=== PATIENT | female | born 1990 | race Caucasian/White ===

== ENCOUNTER → 2020-11-15 13:59 | Outpatient (CLI) | payer BC, SELFPAY ==
[2015-10-03 14:06] VITALS: BMI 33.7
[2020-11-23 08:02] LABS: HPV APTIMA, High Risk Negative (Negative)
[2020-11-23 08:08] LABS: HPV Reflexed? YES, CHARGE PATIENT
== END ==
PROVIDERS: PCP Family Medicine; Visit Provider Obstetrics & Gynecology
DX: Z12.4 Encounter for screening for malignant neoplasm of cervix (principal)
CPT/HCPCS: 87624; 88175; G0145

== ENCOUNTER → 2022-01-31 | Outpatient (CLI) | payer BC, SELFPAY ==
[2022-01-31 15:11] LABS: hCG Titer Quant., Serum 14132 mIU/mL (1-3)
== END | disposition home or self-care (01) ==
LOC: LAB 13:39
PROVIDERS: Referring Provider Obstetrics & Gynecology; Visit Provider Obstetrics & Gynecology
DX: Z34.90 Encounter for supervision of normal pregnancy, unspecified, unspecified trimester (principal)
CPT/HCPCS: 36415; 84702

== ENCOUNTER → 2022-02-25 | Outpatient (CLI) | payer BC, SELFPAY ==
[2022-02-25 15:00] LABS: Absolute Lymphocyte Count 2.88 X10^3/uL (0.83-4.51); Absolute Neutrophil Count 7.2 X10^3/uL (2.0-7.7); Basophil# 0.02 X10^3/uL; Basophil% 0.2 % (0-1); Eosinophil# 0.12 X10^3/uL; Eosinophils% 1.1 % (0-5); Hematocrit 40.9 % (37-47); Hemoglobin 13.8 g/dL (12.0-15.0); Lymphocyte # 2.88 X10^3/ul (0.83-4.51); Lymphocyte % 26.7 % (19-41); Mean Corp Hgb Conc 33.7 g/dL (32-36); Mean Corpuscular Hgb 29.2 pg (27.0-32.0); Mean Corpuscular Volume 86.5 fL (81-99); Mean Platelet Vol. 9.7 fl (6.2-12.0); Monocyte# 0.59 X10^3/uL; Monocyte% 5.5 % (0-10); NRBC Flagged by Analyzer 0 % (0-5); Neutrophil # 7.15 X10^3/uL (2.7-7.7); Neutrophil % 66.2 % (47-70); Platelet Count 366 K/mm3 (150-450); RBC Distribution Width CV 13.5 % (11.6-14.6); RBC Distribution Width SD 42.8 fl (35.1-43.9); Red Blood Count 4.73 M/mm3 (4.2-5.4); White Blood Count 10.8 K/mm3 (4.4-11.0)
[2022-02-25 15:47] LABS: HIV - WCH Non-Reactive (Nonreactive); Hepatitis B Surface Antigen Non-Reactive (Nonreactive); Hepatitis C Antibody Non-Reactive (Nonreactive); Rubella IgG Reactive (Nonreactive); Syphilis Antibodies Non-reactive
[2022-02-27 08:29] LABS: V-Zoster IgG (Immunity) 757 index (Immune >165)
[2022-02-27 22:06] LABS: Chlamydia By Nucleic Acid AMP Negative (Negative)
[2022-02-28 20:28] LABS: Gonococcus By Nucleic Acid AMP Negative (Negative)
== END | disposition home or self-care (01) ==
LOC: WOBLAB 14:04
PROVIDERS: Visit Provider Obstetrics & Gynecology
DX: Z34.81 Encounter for supervision of other normal pregnancy, first trimester (principal)
CPT/HCPCS: 36415; 85025; 86703; 86762; 86780; 86787; 86803; 87086; 87088; 87340; 87491; 87591

== ENCOUNTER → 2022-06-17 | Outpatient (CLI) | payer BC, SELFPAY ==
[2022-06-17 15:24] LABS: Absolute Lymphocyte Count 2.87 X10^3/uL (0.83-4.51); Absolute Neutrophil Count 9.5 X10^3/uL (2.0-7.7); Basophil# 0.03 X10^3/uL; Basophil% 0.2 % (0-1); Eosinophil# 0.15 X10^3/uL; Eosinophils% 1.1 % (0-5); Hematocrit 38.2 % (37-47); Hemoglobin 12.9 g/dL (12.0-15.0); Lymphocyte # 2.87 X10^3/ul (0.83-4.51); Lymphocyte % 21.3 % (19-41); Mean Corp Hgb Conc 33.8 g/dL (32-36); Mean Corpuscular Hgb 29.7 pg (27.0-32.0); Mean Corpuscular Volume 87.8 fL (81-99); Mean Platelet Vol. 9.4 fl (6.2-12.0); Monocyte# 0.79 X10^3/uL; Monocyte% 5.9 % (0-10); NRBC Flagged by Analyzer 0 % (0-5); Neutrophil # 9.54 X10^3/uL (2.7-7.7); Neutrophil % 70.8 % (47-70); Platelet Count 326 K/mm3 (150-450); RBC Distribution Width CV 13.1 % (11.6-14.6); RBC Distribution Width SD 42.4 fl (35.1-43.9); Red Blood Count 4.35 M/mm3 (4.2-5.4); White Blood Count 13.5 K/mm3 (4.4-11.0)
[2022-06-17 15:55] LABS: Glucose Challenge Gest 1H 50g 101 mg/dL (70-140)
== END | disposition home or self-care (01) ==
LOC: WOBLAB 15:05
PROVIDERS: Visit Provider Obstetrics & Gynecology
DX: Z34.82 Encounter for supervision of other normal pregnancy, second trimester (principal)
CPT/HCPCS: 36415; 82950; 85025

== ENCOUNTER → 2022-08-28 | Outpatient (CLI) | payer BC, SELFPAY ==
[2022-08-28 17:06] LABS: Absolute Lymphocyte Count 2.34 X10^3/uL (0.83-4.51); Absolute Neutrophil Count 8.5 X10^3/uL (2.0-7.7); Basophil# 0.03 X10^3/uL; Basophil% 0.3 % (0-1); Eosinophil# 0.08 X10^3/uL; Eosinophils% 0.7 % (0-5); Hematocrit 40.8 % (37-47); Hemoglobin 13.5 g/dL (12.0-15.0); Lymphocyte # 2.34 X10^3/ul (0.83-4.51); Lymphocyte % 19.6 % (19-41); Mean Corp Hgb Conc 33.1 g/dL (32-36); Mean Corpuscular Hgb 29.5 pg (27.0-32.0); Mean Corpuscular Volume 89.1 fL (81-99); Monocyte# 0.89 X10^3/uL; Monocyte% 7.5 % (0-10); NRBC Flagged by Analyzer 0 % (0-5); Neutrophil % 71.1 % (47-70); Platelet Count 325 K/mm3 (150-450); RBC Distribution Width CV 13.5 % (11.6-14.6); RBC Distribution Width SD 43.2 fl (35.1-43.9); Red Blood Count 4.58 M/mm3 (4.2-5.4); White Blood Count 11.9 K/mm3 (4.4-11.0)
[2022-08-28 19:06] LABS: Syphilis Antibodies Non-reactive
== END | disposition home or self-care (01) ==
LOC: WOBLAB 15:53
PROVIDERS: Referring Provider Obstetrics & Gynecology; Visit Provider Obstetrics & Gynecology
DX: Z34.83 Encounter for supervision of other normal pregnancy, third trimester (principal)
CPT/HCPCS: 36415; 85025; 86780; 87081

== ENCOUNTER 2022-09-24 22:43 | Inpatient (IN) | payer BC, SELFPAY ==
[2022-09-24 20:33] VITALS: TEMP 36.7; O2SAT 96
[2022-09-24 20:34] VITALS: BP 115/77; PULSE 95
[2022-09-24 20:35] VITALS: BMI 41.8
[2022-09-24] MEDS: Lactated Ringers 1,000 ML 50 ML IV (23:00)
[2022-09-24 23:01] VITALS: BP 129/85; PULSE 84; PULSE 88; O2SAT 97
[2022-09-24 23:19] LABS: Absolute Lymphocyte Count 2.95 X10^3/uL (0.83-4.51); Absolute Neutrophil Count 8.8 X10^3/uL (2.0-7.7); Basophil# 0.03 X10^3/uL; Basophil% 0.2 % (0-1); Eosinophil# 0.08 X10^3/uL; Eosinophils% 0.6 % (0-5); Hematocrit 39.2 % (37-47); Hemoglobin 13.2 g/dL (12.0-15.0); Lymphocyte # 2.95 X10^3/ul (0.83-4.51); Lymphocyte % 22.9 % (19-41); Mean Corp Hgb Conc 33.7 g/dL (32-36); Mean Corpuscular Volume 86.2 fL (81-99); Mean Platelet Vol. 9.7 fl (6.2-12.0); Monocyte# 0.86 X10^3/uL; Monocyte% 6.7 % (0-10); NRBC Flagged by Analyzer 0 % (0-5); Neutrophil # 8.81 X10^3/uL (2.7-7.7); Neutrophil % 68.5 % (47-70); Platelet Count 331 K/mm3 (150-450); RBC Distribution Width CV 13.2 % (11.6-14.6); RBC Distribution Width SD 40.9 fl (35.1-43.9); Red Blood Count 4.55 M/mm3 (4.2-5.4); White Blood Count 12.9 K/mm3 (4.4-11.0)
[2022-09-25] VITALS (58 sets, daily range): BP systolic 94–136; BP diastolic 51–86; PULSE 61–90; RESP 12–20; TEMP 36.1–37; O2SAT 95–99
[2022-09-25 00:24] LABS: Syphilis Antibodies Non-reactive
[2022-09-25] MEDS: Oxytocin 15 Units/NS 250ml 15 UNITS/250 ML IV.SOLN 2 UNITS IV (00:26)
[2022-09-25] MEDS: LACTATED RINGERS 500 ML 999 ML IV ×3 (02:52→10:06)
--- NOTE | 2022-09-25 08:30 | HP.PCM.OB_ITS ---
History and Physical Date of Admission: 09/24/22 HPI: 32-year-old G3, P0 at 40/0 weeks, FABIANO 09/25/22 by 9 week , admitted for induction of labor for nonreassuring heart tones. Patient reported 3 days of overall decreased movement, on day of admission it was even less. She reported to labor and delivery for evaluation. She was monitored for 2 hours during which time she did have movement, however on heart tracing there we are a couple intermittent variable decelerations. Based on this and being 39/6 weeks on day of admission, recommended induction of labor. Patient was amenable and agreed with plan after discussion. Denies regular contractions, leaking of fluid. Denies headache or vision changes, chest pain or shortness of breath, nausea or vomiting, diarrhea constipation, fevers or chills. complicated by: Class III obesity, history of 2 prior miscarriages [employer] History: G1: First trimester SAB G2: First trimester SAB G3: Current Medical history: 1. Class III obesity 2. Infertility Surgical history: 1. Tonsillectomy Medications: 1. Aspirin 81 mg 2. vitamin 3. Omeprazole Family history: No history of blood clots or bleeding disorders, otherwise noncontributory Allergies: No known drug allergies Social history: Denies tobacco, alcohol, drug use was a former smoker.. Review of system: Negative otherwise stated above Physical exam: Temp 97.5 ?F, blood pressure 131/86, pulse 67, pulse ox 97% on room air General: No acute distress, comfortable in bed HEENT: Normal cephalic/atraumatic, PERRLA Cardiorespiratory: No increased effort Abdomen: Soft, nontender, gravid Extremities: No edema Neurologic: Cranial nerves II through XII grossly intact, no focal deficits Musculoskeletal: Moves all extremities equally Cervical exam: 4/60/-2, AROM clear fluid. FSE and IUPC placed heart rate:125/mod roderick/+accel/no decel [place]: q2-5 min Assessment/plan: 32-year-old G3, P0 at 40/0 weeks, FABIANO 09/25/22 by 9 week , admitted for induction of labor for nonreassuring heart tones. ?Admit for labor induction with Pitocin. ? AROM this morning ? Epidural at any time patient desires ? Continue titrating Pitocin as tolerated ? GBS negative
[2022-09-25] MEDS: fentaNYL-bupivacaine (epidural) 100 ML BAG EPIDURAL ×2 (09:50→14:20)
[2022-09-25] MEDS: Lactated Ringers 1,000 ML 200 ML IV ×3 (10:11→18:18)
[2022-09-25] MEDS: Terbutaline 1 MG/ML Vial 0.25 MG SC (15:37)
--- NOTE | 2022-09-25 15:37 | PN.OBGYN_ITS ---
Subjective Subjective Patient seen and evaluated. Comfortable with epidural. Objective Data Objective Data Vital Signs: Vital Signs Temp Pulse Resp BP Pulse Ox 97.4 F L 64 18 102/66 97 09/25/22 14:41 09/25/22 14:41 09/25/22 14:41 09/25/22 14:41 09/25/22 14:41 Weight: 117.753 kg Body Mass Index (BMI) 41.8 Intake & Output: Intake and Output for Last 24 Hours 09/23/22 09/24/22 09/25/22 23:59 23:59 23:59 Intake Total 2957.38 / 2957.38 Balance 2957.38 / 2957.38 Lab / Micro Data Result Diagrams: 09/24/22 22:55 Labs: Laboratory Results - last 24 hr 09/24/22 22:55: WBC 12.9 H, RBC 4.55, Hgb 13.2, Hct 39.2, MCV 86.2, MCH 29.0, MCHC 33.7, RDW Std Deviation 40.9, RDW Coeff of Minesh 13.2, Plt Count 331, MPV 9.7, Immature Gran % (Auto) 1.100 H, Neut % (Auto) 68.5, Lymph % (Auto) 22.9, Edwards % (Auto) 6.7, Eos % (Auto) 0.6, Baso % (Auto) 0.2, Absolute Neuts (auto) 8.8 H, Absolute Lymphs (auto) 2.95, Nucleated RBC % 0 09/24/22 22:55: Blood Type B POSITIVE, Antibody Screen NEGATIVE 09/24/22 22:55: Syphilis Total Ab Non-reactive Physical Exam Const alert, oriented x3 and no apparent distress Resp normal respiratory effort Cardio regular rate GI non-tender and non-distended Inspection: gravid Narrative: 560/-2 Extremity no pedal edema Neuro no focal motor deficits and no sensory deficits noted NST FHR Rate Baby A Baseline: 125 Variability:: Moderate Accelerations:: None Decelerations:: Variable (intermittent, intermittent late) FHR Category:: Category II Uterine Activity:: q6-7 Assessment & Plan (1) Obesity affecting : PLAN: G3, P0 at 40/0 weeks admitted for induction of labor for nonreassuring heart tones. Category 2 tracing. Pitocin was turned off. Patient now getting terbutaline. Discussed labor management. With category 2 tracing and intermittent variable and late decelerations, this is the reasoning for Pitocin break and terbutaline. If decelerations are persistent, will proceed with section. If decelerations resolved, will monitor and then restart Pitocin at 2 milliunits. Patient aware that if after restarting Pitocin there are decelerations, then decision for section would be recommended. All risk, benefits, alternatives for section were discussed with the patient. Risks include but are not limited to: Risk of bleeding to the point transfusion, infection, injury to surrounding tissue including bowel/bladder potentially requiring prolonged Sanders catheter use, VTE, ICU admission. Patient aware. All questions answered. Reviewed plan of care with patient, partner, [id number], and bedside RN. In event of section would need 2 gm Ancef and 500 mg Azithromycin preoperatively. (2) Encounter for induction of labor:
[2022-09-25] MEDS: Acetaminophen 500 MG Tablet PO (18:07)
[2022-09-25] MEDS: Sodium Citrate/Citric Acid 30 ML UDC PO (18:07)
[2022-09-25] MEDS: Cefazolin 2 GM in 0.9% Normal Saline 100 ML IV (18:22)
--- NOTE | 2022-09-25 19:23 | EX.PCM.OBRPT ---
Maternal Data Information Final FABIANO: 09/25/22 Details Operative Information Date of Procedure: 09/25/22 Pre-Operative Diagnosis: Jauregui intrauterine at term, intolerance of labor Post-Operative Diagnosis: [place] intrauterine at term, intolerance of labor Indications Narrative: 32-year-old G3, P0 at 40/0 weeks for section for intolerance of labor. All risk, benefits, alternatives were discussed with patient. Risk of apparent limited to: Risk of bleeding the point transfusion, infection, injury to surrounding tissue and bowel/bladder potentially requiring prolonged Sanders catheter use, VTE, ICU admission. Patient aware and consented. Classification: NUNU Procedure Type: low transverse Type of Anesthesia: Epidural Estimated Blood Loss: 800cc Fluids Replaced: 1700cc Findings Description of Procedure: Procedure: Patient taken to the operating room and epidural anesthesia dosed. Placed in the supine position with a left lateral tilt. Prepped and draped in usual sterile fashion. Pfannenstiel skin incision made with scalpel and carried down through subcutaneous tissue. Fascia nicked on either side of the midline and extended bilaterally bluntly and sharply using Oh scissors. Deirdre clamps grasped superior fascial edge which was tented up and underlying rectus muscles were dissected off bluntly and sharply at midline using Oh scissors. Deirdre clamps moved to the inferior fascial edge which was tented up and underlying rectus muscles were dissected off in a similar fashion. Hemostat used to separate rectus muscle superiorly. Peritoneum entered bluntly. Bladder blade placed. Low transverse uterine incision made scalpel and extended bluntly. Hand placed into the uterine cavity and head elevated to the level of the hysterotomy. Bladder blade removed. With the assistance of gentle fundal pressure, head delivered followed by body. No nuchal cord. Cord clamped and cut. Baby handed to nursing. Manual extraction of placenta. Uterus exteriorized and cleared of all clots. Hysterotomy closed with a running stitch followed by second vertical imbricating stitch. Hemostatic with 1 [id number] suture. Uterus replaced into the abdominal cavity, hemostasis confirmed. Zaira placed along the hysterotomy closure. Peritoneum closed with a running stitch. Muscle reapproximated with horizontal mattress suture. Fascia closed with a running stitch. Subcutaneous tissue reapproximated with suture. Skin closed with running subcuticular stitch. At the end of the procedure all needle, lap, sponge counts were correct. UOP: 150cc, urine blood-tinged upon arrival to the OR, clearing after surgery. A Gender: Male (1 minute): 9 (5 minute): 9 Complications Complications: None
[2022-09-25] MEDS: Oxytocin 15 Units/NS 250ml 15 UNITS/250 ML IV.SOLN 83 UNITS IV (20:00)
[2022-09-25] MEDS: Ketorolac 30 MG/ML Syringe IV (20:11)
[2022-09-25] MEDS: Lactated Ringers 1,000 ML 100 ML IV (21:00)
--- NOTE | 2022-09-25 22:00 | NURSING ---
Intrapartum lactated ringers and pitocin were already discontinued prior to when I received pt on 09/25/2022 at 1900
[2022-09-26] VITALS (14 sets, daily range): BP systolic 90–121; BP diastolic 51–65; PULSE 75–100; RESP 15–18; TEMP 36.1–37.2; O2SAT 93–97
[2022-09-26] MEDS: Acetaminophen 500 MG Tablet 1000 MG PO ×4 (01:11→19:54)
[2022-09-26] MEDS: Ketorolac 30 MG/ML Syringe IV ×2 (01:32→08:51)
[2022-09-26 06:52] LABS: Hematocrit 32.4 % (37-47); Hemoglobin 10.7 g/dL (12.0-15.0); Mean Corpuscular Hgb 29.6 pg (27.0-32.0); Mean Corpuscular Volume 89.8 fL (81-99); Mean Platelet Vol. 9.6 fl (6.2-12.0); Platelet Count 249 K/mm3 (150-450); RBC Distribution Width CV 13.1 % (11.6-14.6); RBC Distribution Width SD 42.8 fl (35.1-43.9); Red Blood Count 3.61 M/mm3 (4.2-5.4); White Blood Count 13.7 K/mm3 (4.4-11.0)
[2022-09-26] MEDS: Nalbuphine 10 MG/ML Ampul 5 MG IV (06:52)
[2022-09-26] MEDS: 0.9% Saline Lock 10 ML Syringe IV ×3 (06:53→13:07)
--- NOTE | 2022-09-26 08:26 | PCM.PN.OB ---
Subjective Subjective Pain controlled. Lochia minimal. Working on breast-feeding. Objective Data Objective Data Vital Signs: Vital Signs Temp Pulse Resp BP Pulse Ox O2 Del Method 97 F L 92 18 96/59 L 97 Room Air 09/26/22 03:34 09/26/22 06:43 09/26/22 06:43 09/26/22 03:34 09/26/22 06:43 09/26/22 06:43 Oxygen Delivery Method Room Air Weight: 117.753 kg Body Mass Index (BMI) 41.8 Intake & Output: Intake and Output for Last 24 Hours 09/24/22 09/25/22 09/26/22 23:59 23:59 23:59 Intake Total 4784.88 / 4784.88 976.67 / 976.67 Output Total 350 / 350 1175 / 1175 Balance 4434.88 / 4434.88 -198.33 / -198.33 Lab / Micro Data Attestation: I reviewed the patient's lab results. Result Diagrams: 09/26/22 06:39 Labs: Laboratory Results - last 24 hr 09/26/22 06:39: WBC 13.7 H, RBC 3.61 L, Hgb 10.7 L, Hct 32.4 L, MCV 89.8, MCH 29.6, MCHC 33.0, RDW Std Deviation 42.8, RDW Coeff of Minesh 13.1, Plt Count 249, MPV 9.6 Physical Exam Const alert, oriented x3 and no apparent distress HEENT normocephalic Head and Scalp: atraumatic Neck full ROM Resp normal respiratory effort Cardio regular rate GI normal to inspection, nondistended, normoactive bowel sounds GI Narrative: Uterus 2 cm below umbilicus, dressing clean and dry Back/Spine normal ROM Extremity normal to inspection Extremity Narrative: Minimal pedal edema Neuro no focal motor deficits and no sensory deficits noted Psych mental status grossly normal and affect normal Assessment & Plan (1) Other acute postprocedural pain: PLAN: Postop day 1 status post primary section for intolerance of labor. Complicated by acute blood loss anemia secondary to surgery, iron supplement on home-going. Breast-feeding. Likely discharge home tomorrow. (2) Obesity affecting : (3) Delivery by section:
[2022-09-26] MEDS: Senna/Docusate Sodium 1 Tablet PO (08:51)
[2022-09-26] MEDS: Enoxaparin 40 MG/0.4 ML Syringe SC ×2 (11:11→22:19)
[2022-09-26] MEDS: Pantoprazole Sodium 40 MG Tablet PO (11:11)
[2022-09-26] MEDS: Ibuprofen 600 MG Tablet PO ×2 (14:22→22:12)
[2022-09-27] MEDS: Acetaminophen 500 MG Tablet 1000 MG PO ×2 (01:22→09:28)
[2022-09-27] MEDS: Ibuprofen 600 MG Tablet PO ×2 (03:04→09:28)
[2022-09-27 03:06] VITALS: BP 106/63; PULSE 81; RESP 15; TEMP 36.4
--- NOTE | 2022-09-27 09:27 | CASEMGMT ---
Social Work Labor and Delivery Unit Date/Time of referral:09/26/22, 6:57am Referred by: Rosita Mcguire Date/Time of Intervention: 09/27/22, 9:15am Reason for Referral: history of anxiety History obtained from: MOB and FOB Household composition: MOB FOB, now baby Joe (and 3 older dogs) Parent/Guardian status: MOB and FOB are guardians of this baby. This is their first child. Medical History: MOB--obesity, asthma, PCOS, infertility. Baby--born 09/25/22, 18:44, 4075 grams, Apgars 9 and 9 at 1 and 5 minutes Educational Status: FOB: Graduated from [employer]. MOB: Took 5 years' worth of continuing education classes with [facility] Financial Status: No concerns. FOB works for [employer]. MOB plans to stay home with the baby Childcare/Caregivers: MOB and FOB, FOB's parents are 30 minutes away and available if needed, MOB's father also about 30 minutes away and available if needed, as well as extended family if needed. Transportation: They have 2 vehicles Programs/Agencies involved: None Children's Services/Legal issues: None Behavioral Health concerns: Substance abuse--no history for MOB or FOB. Mental Health--FOB, no history. MOB--history of anxiety. MOB explains that she has anxiety but it does not keep her from doing anything. She was in counseling and did use medication for anxiety about 5-7 years ago, but not since. MOB explains that she has developed her own coping mechanisms and this works better for her than medication. She does not express any need for counseling or medication at this time. Family/Social Stressors: None Support Systems: MOB's father, FOB's parents, aunts and uncles and siblings on both sides of family. depression and anxiety/shaken baby/safe sleeping/Help Me Grow/crisis hotline information: SW gave MOB information on all of these topics and reviewed it with both MOB and FOB. SW reviewed in particular information on depression and anxiety, and reviewed checklist of possible symptoms w/FOB and MOB. SW explained to them if MOB were to have symptoms, to check in w/her OB, educated that at times a mood enhancer short term may be recommended. SW also encouraged MOB if having symptoms to seek counseling. MOB and FOB state understanding. Assessment: MOB open with SW and answered all questions. FOB present, did not answer all questions but appropriate. He was holding baby during our conversation and seemed appropriate in care of infant. Plan: Baby to go home w/FOB and MOB at discharge, no other social service needs requested or indicated at this time. SW remains available should any needs arise. ANGLE Joaquin
[2022-09-27] MEDS: Senna/Docusate Sodium 1 Tablet PO (09:28)
[2022-09-27] MEDS: Pantoprazole Sodium 40 MG Tablet PO (09:28)
[2022-09-27 09:47] VITALS: BP 117/77; PULSE 79; RESP 16; TEMP 36.4
--- NOTE | 2022-09-27 10:34 | PCM.PN.OB ---
Subjective Subjective Pain controlled. Baby was cluster feeding overnight. Lochia minimal. Objective Data Objective Data Vital Signs: Vital Signs Temp Pulse Resp BP Pulse Ox O2 Del Method 97.5 F L 79 16 117/77 96 Room Air 09/27/22 09:47 09/27/22 09:47 09/27/22 09:47 09/27/22 09:47 09/26/22 19:45 09/27/22 03:06 Oxygen Delivery Method Room Air Weight: 117.753 kg Body Mass Index (BMI) 41.8 Intake & Output: Intake and Output for Last 24 Hours 09/25/22 09/26/22 09/27/22 23:59 23:59 23:59 Intake Total 4784.88 / 4784.88 976.67 / 976.67 Output Total 350 / 350 1974 Balance 4434.88 / 4434.88 -998.33 / -998.33 Lab / Micro Data Attestation: I reviewed the patient's lab results. Result Diagrams: 09/26/22 06:39 Physical Exam Const alert, oriented x3 and no apparent distress HEENT normocephalic Head and Scalp: atraumatic Neck full ROM Resp normal respiratory effort Cardio regular rate GI normal to inspection, nondistended, normoactive bowel sounds GI Narrative: Uterus 2 cm below umbilicus, dressing clean and dry Back/Spine normal ROM Extremity normal to inspection Extremity Narrative: Minimal pedal edema Neuro no focal motor deficits and no sensory deficits noted Psych mental status grossly normal and affect normal Assessment & Plan (1) Delivery by section: (2) Other acute postprocedural pain: PLAN: Postop day 2 status post primary section for intolerance of labor. Complicated by acute blood loss anemia secondary to surgery, iron supplement on home-going. Breast-feeding. Has appointment scheduled. Discussed postoperative wound care and expectations. Home today. (3) Obesity affecting :
--- NOTE | 2022-09-27 10:35 | DCINST_ITS ---
Discharge Instructions Diet Discharge Diet: No restrictions Activity Discharge Activity: Return to Normal Activity and May Shower May resume sexual activity in: 4-6 weeks Weight Bearing Status: Weight bearing as tolerated Lifting Restrictions: No greater than 25 pounds Dressing / Incision Call your doctor if your incision/area has: Continuous Slow Oozing, Increased Redness and Swelling at the incision site Call your doctor if you observe: Fever of 101 or Higher, Change in Color, Inability to urinate, Using more than 1 pad per hour, Shortness of breath, Dizziness, Swelling in the ankles, Chest pain and Calf discomfort Remove Dressing in: 1 week Cleanse incision/area with: Soap & Water and Keep Dressing Clean & Dry Follow Up Care Please Follow Up With: Robbie Mcguire MD When: 2-week and 6-week visit Test Results: Test results from this visit will be discussed in further detail at your follow- up appointment, if applicable. Discharge Plan Admission Admit Date/Time: 09/24/22 22:43 Primary Reason for Your Visit: section Attending Provider: Rosita Mcguire Primary Care Provider: Ami Marks Discharge Orders/Prescriptions Prescriptions: New oxycodone 5 mg tablet 5 mg PO Q6H PRN (Reason: pain (scale score 7-10)) 4 Days Qty: 20 0RF Continued multivitamin [Daily Multiple] 1 EACH tablet 1 ea PO DAILY omeprazole 40 mg capsule,delayed release(DR/EC) 40 mg PO DAILY Discontinued aspirin [Baby Aspirin] 81 mg Tablet,Chewable 81 mg PO DAILY Referrals / Follow Up: Ami Marks PA [Primary Care Provider] - Disposition Disposition (needs filled in before D/C Order can be placed): Home, Self Care
--- NOTE | 2022-09-27 10:36 | DS.PCM_ITS ---
Providers Date of Admission: 09/24/22 Primary Care Physician: ZINA Oglesby Reason For Visit: DELIVERY Diagnosis Discharge Diagnosis (1) Delivery by section: Status: Acute (2) Other acute postprocedural pain: Status: Acute Code(s): G89.18 - Other acute postprocedural pain Plan: Postop day 2 status post primary section for intolerance of labor. Complicated by acute blood loss anemia secondary to surgery, iron supplement on home-going. Breast-feeding. Has appointment scheduled. Discussed postoperative wound care and expectations. Home today. (3) Obesity affecting : Status: Acute Code(s): O99.210 - Obesity complicating , unspecified trimester Medications at Discharge Home Medications multivitamin (Daily Multiple tablet) 1 ea PO DAILY 10/03/15 omeprazole 40 mg capsule,delayed release 40 mg PO DAILY 09/24/22 oxycodone 5 mg tablet 5 mg PO Q6H PRN pain (scale score 7-10) 4 days #20 tabs 09/25/22 Hospital Course Operations section Summary of Care Provided Hospital Course: Admitted for induction of labor at term for nonreassuring heart tones. Patient progressed through labor and had section for intolerance of labor. Stable for discharge home postop day 2. Physical Exam Const alert, oriented x3 and no apparent distress HEENT normocephalic Head and Scalp: atraumatic Neck full ROM Resp normal respiratory effort Cardio regular rate GI normal to inspection, nondistended, normoactive bowel sounds GI Narrative: Uterus 2 cm below umbilicus, dressing clean and dry Back/Spine normal ROM Extremity normal to inspection Extremity Narrative: Minimal pedal edema Neuro no focal motor deficits and no sensory deficits noted Psych mental status grossly normal and affect normal Weight / BMI Weight Weight: 117.753 kg Body Mass Index (BMI) 41.8 ABG / Lab / Microbiology Data Result Diagrams: 09/26/22 06:39 D/C Instructions Discharge Diet: No restrictions May resume sexual activity in: 4-6 weeks Weight Bearing Status: Weight bearing as tolerated Call your doctor if your incision/area has: Continuous Slow Oozing, Increased Redness and Swelling at the incision site Call your doctor if you observe: Fever of 101 or Higher, Change in Color, I nability to urinate, Using more than 1 pad per hour, Shortness of breath, Dizziness, Swelling in the ankles, Chest pain and Calf discomfort Cleanse incision/area with: Soap & Water and Keep Dressing Clean & Dry Please Follow Up With: Robbie Mcguire MD When: 2-week and 6-week visit Meaningful Use Info Meaningful Use Diagnoses (Choose all that apply): None applicable Discharge Plan Admission Admit Date/Time: 09/24/22 22:43 Primary Reason for Your Visit: section Attending Provider: Rosita Mcguire Primary Care Provider: Ami Marks Discharge Orders/Prescriptions Prescriptions: New oxycodone 5 mg tablet 5 mg PO Q6H PRN (Reason: pain (scale score 7-10)) 4 Days Qty: 20 0RF Continued multivitamin [Daily Multiple] 1 EACH tablet 1 ea PO DAILY omeprazole 40 mg capsule,delayed release(DR/EC) 40 mg PO DAILY Discontinued aspirin [Baby Aspirin] 81 mg Tablet,Chewable 81 mg PO DAILY Referrals / Follow Up: Ami Marks PA [Primary Care Provider] - Disposition Disposition (needs filled in before D/C Order can be placed): Home, Self Care
[2022-09-27] MEDS: Enoxaparin 40 MG/0.4 ML Syringe SC (11:34)
== END 2022-09-27 12:20 | disposition home or self-care (01) | DRG 787 ==
LOC: WPOUT 22:45 → WP 22:45
PROVIDERS: Admitting Provider Student in an Organized Health Care Education/Training Program; Visit Provider Student in an Organized Health Care Education/Training Program
DX: O76 Abnormality in fetal heart rate and rhythm complicating labor and delivery (principal); O99.354 Diseases of the nervous system complicating childbirth; D62 Acute posthemorrhagic anemia; O90.81 Anemia of the puerperium; Z37.0 Single live birth; O36.8130 Decreased fetal movements, third trimester, not applicable or unspecified; Z3A.40 40 weeks gestation of pregnancy; O26.23 Pregnancy care for patient with recurrent pregnancy loss, third trimester; Z87.891 Personal history of nicotine dependence
CPT/HCPCS: 59025; 59050; 85025; 85027; 86780; 86850; 86900; 86901; 99221; J7120; A4216; G0378; J2405

== ENCOUNTER → 2024-11-24 | Outpatient (CLI) | payer BC, SELFPAY | END | disposition home or self-care (01) | PROVIDERS: Referring Provider Physician Assistant; Visit Provider Physician Assistant | DX: N39.0 Urinary tract infection, site not specified (principal) | CPT/HCPCS: 87086; 87088 ==